=== PATIENT | female | born 1970 | race Caucasian/White ===

== ENCOUNTER 2018-02-13 13:44 | Inpatient (IN) | payer MEDICAID, OTHER ==
[~2018-02-13] VITALS: Ht 157.5 cm; Wt 76.7 kg
[2018-02-13 15:33] LABS: BASOPHILS % (AUTO) 0.6 % (0.0-2.0); EOSINOPHILS % (AUTO) 1.6 % (1.0-6.0); HEMATOCRIT 38.7 % (36-46); HEMOGLOBIN 13.1 g/dL (12.0-16.0); LYMPHOCYTES # (AUTO) 3.7 K/uL (1.0-4.8); LYMPHOCYTES % (AUTO) 34.5 % (22.0-44.0); MEAN CORPUSCULAR HEMOGLOBIN 29.6 pg (26.0-34.0); MEAN CORPUSCULAR HGB CONC 33.9 G/dL (31.0-37.0); MEAN CORPUSCULAR VOLUME 87 fL (80-100); MONOCYTES # (AUTO) 0.8 K/uL (0.1-1.0); MONOCYTES % (AUTO) 7.9 % (2.0-9.0); NEUTROPHILS # (AUTO) 5.9 K/uL (1.8-7.7); NEUTROPHILS % (AUTO) 55.4 % (40.0-70.0); PLATELET COUNT (AUTO) 394 K/uL (150-450); RED BLOOD CELL COUNT(AUTO) 4.45 MIL/uL (4.00-5.20); RED CELL DISTRIBUTION WIDTH 13.7 % (11.5-14.5)
[2018-02-13 15:48] LABS: ANION GAP 8 mmol/L (8-16); CALCIUM, TOTAL 8.9 mg/dL (8.8-10.5); CARBON DIOXIDE 28 mmol/L (22-29); CHLORIDE 106 mmol/L (98-107); CREATININE 0.61 mg/dL (0.60-1.30); GLOMERULAR FILTR. RATE CALC > 60 mL/min (>60); GLUCOSE,RANDOM 100 mg/dL (70-110); POTASSIUM 3.9 mmol/L (3.5-5.1); SODIUM SERUM 142 mmol/L (136-145); UREA NITROGEN, BLOOD 15 mg/dL (7-18)
[2018-02-13 15:53] LABS: ALANINE AMINOTRANSFERASE 25 U/L (12-78); ALBUMIN 3.2 g/dL (3.4-5.0); ALKALINE PHOSPHATASE 92 U/L (46-116); ASPARTATE AMINOTRANSFERASE 16 U/L (15-37); BILIRUBIN,TOTAL 0.2 mg/dL (0.1-1.0); TOTAL PROTEIN, SERUM 6.4 g/dL (6.4-8.2)
[2018-02-13 15:54] LABS: APPEARANCE,URINE CLOUDY (CLEAR); BILIRUBIN,URINE NEGATIVE (NEGATIVE); GLUCOSE, URINE (UA) NEGATIVE (NEGATIVE); KETONES,URINE NEGATIVE (NEGATIVE); LEUKOCYTE ESTERASE ,URINE MODERATE (NEGATIVE); NITRATE,URINE NEGATIVE (NEGATIVE); OCCULT BLOOD,URINE NEGATIVE (NEGATIVE); PH,URINE 6.5 (5.0-8.0); PROTEIN,URINE NEGATIVE (NEGATIVE); UROBILINOGEN,URINE 0.2 mg/dL (<=1.0)
[2018-02-13 16:26] LABS: AMPHET/METH SCREEN,URINE POSITIVE (NEGATIVE); BARBITURATE SCREEN, URINE NEGATIVE (NEGATIVE); BENZODIAZEPINES SCREEN,URINE NEGATIVE (NEGATIVE); CANNABINOID SCREEN,URINE NEGATIVE (NEGATIVE); COCAINE SCREEN,URINE NEGATIVE (NEGATIVE); METHADONE SCREEN, URINE NEGATIVE (NEGATIVE); OPIATE SCREEN,URINE NEGATIVE (NEGATIVE)
[2018-02-13 16:30] LABS: PHENCYCLIDINE SCREEN,URINE NEGATIVE (NEGATIVE)
[2018-02-13] MEDS ORDERED: CefTRIAXone SODIUM 1 GM/VIAL IM ONE (16:30)
[2018-02-13] MEDS ORDERED: MetroNIDAZOLE 500 MG TABLET PO ONE (16:45)
[2018-02-13] MEDS ORDERED: AZITHROMYCIN 250 MG TABLET PO ONE (16:45)
[2018-02-13 16:47] LABS: BACTERIA,URINE Few /HPF (None Seen); RBC,URINE None Seen /HPF (0-2); SQUAMOUS EPITHELIAL CELL,UR Few /LPF (None Seen); WBC,URINE 0-2 /HPF (0-5)
[2018-02-13] MEDS ORDERED: KETOROLAC TROMETHAMINE 30 MG/ML VIAL IM ONE (17:15)
[2018-02-13] MEDS ORDERED: ACETAMINOPHEN 325 MG TABLET PO ONE (21:45)
[2018-02-14] VITALS: BP 117/75
[2018-02-14] MEDS ORDERED: PNEUMOCOCCAL VACCINE POLYVALENT 0.5 ML VIAL [PPSV23] IM ONE (03:15)
[2018-02-14] MEDS ORDERED: MAGNESIUM HYDROXIDE SUSPENSION 30 ML UDCUP PO PRN (07:30)
[2018-02-14] MEDS ORDERED: LOPERAMIDE HCL 2 MG CAPSULE PO PRN (07:30)
[2018-02-14] MEDS ORDERED: ONDANSETRON HCL 4 MG TABLET PO PRN (07:30)
[2018-02-14] MEDS ORDERED: NICOTINE 14 MG/24 HOUR PATCH TD PRN (07:30)
[2018-02-14] MEDS ORDERED: GuaiFENesin/D-METHORPHAN [SUGAR-FREE] 200-20MG/10 ML SYRUP UDCUP PO PRN (07:30)
[2018-02-14] MEDS ORDERED: PETROLATUM,WHITE 71 GM JELLY TP PRN (07:30)
[2018-02-14] MEDS ORDERED: ALBUTEROL SULFATE HFA 90 MCG/PUFF 8 GM INHALER IH PRN (07:30)
[2018-02-14] MEDS ORDERED: CloNIDine HCL 0.1 MG TABLET PO PRN (07:30)
[2018-02-14] MEDS ORDERED: ACETAMINOPHEN 325 MG TABLET PO PRN (07:30)
[2018-02-14] MEDS ORDERED: DOCUSATE SODIUM 100 MG CAPSULE PO PRN (07:30)
[2018-02-14 08:29] VITALS: BP 150/83
[2018-02-14 09:57] VITALS: BP 132/67
[2018-02-14] MEDS: IBUPROFEN 400 MG TABLET PO PRN (09:57)
[2018-02-14] MEDS: VENLAFAXINE HCL 75 MG ER CAPSULE PO SCH (12:39)
[2018-02-14] MEDS: QUEtiapine FUMARATE 25 MG TABLET PO SCH (12:39)
[2018-02-14 16:11] VITALS: BP 123/69
[2018-02-14] MEDS: LORazepam 2 MG TABLET PO PRN (16:40)
[2018-02-14] MEDS: OLANZapine 5 MG RAPDIS TABLET PO PRN (16:40)
[2018-02-14] MEDS: ZOLPIDEM TARTRATE 10 MG TABLET PO PRN (20:30)
[2018-02-14] MEDS: QUEtiapine FUMARATE 100 MG TABLET PO SCH (20:30)
[2018-02-15 06:30] VITALS: BP 132/88
[2018-02-15] MEDS: VENLAFAXINE HCL 75 MG ER CAPSULE PO SCH (08:18)
[2018-02-15] MEDS: QUEtiapine FUMARATE 25 MG TABLET PO SCH (08:18)
[2018-02-15 08:30] VITALS: BP 142/81
[2018-02-15 16:05] VITALS: BP 130/69
[2018-02-15] MEDS: LORazepam 2 MG TABLET PO PRN (17:35)
[2018-02-15] MEDS: QUEtiapine FUMARATE 100 MG TABLET PO SCH (20:36)
[2018-02-15] MEDS: ZOLPIDEM TARTRATE 10 MG TABLET PO PRN (21:05)
[2018-02-16 06:09] VITALS: BP 141/90
[2018-02-16] MEDS: IBUPROFEN 400 MG TABLET PO PRN ×2 (06:17→16:10)
[2018-02-16] MEDS: LORazepam 2 MG TABLET PO PRN ×2 (06:17→16:37)
[2018-02-16] MEDS: QUEtiapine FUMARATE 25 MG TABLET PO SCH (08:05)
[2018-02-16] MEDS: VENLAFAXINE HCL 75 MG ER CAPSULE PO SCH (08:05)
[2018-02-16 08:24] VITALS: BP 116/61
[2018-02-16 16:09] VITALS: BP 141/96
[2018-02-16] MEDS: QUEtiapine FUMARATE 100 MG TABLET PO SCH (20:38)
[2018-02-17 05:44] VITALS: BP 127/75
[2018-02-17 08:21] VITALS: BP 102/60
[2018-02-17 08:23] LABS: BASOPHILS % (AUTO) 0.5 % (0.0-2.0); EOSINOPHILS % (AUTO) 2.5 % (1.0-6.0); HEMOGLOBIN 13.8 g/dL (12.0-16.0); LYMPHOCYTES # (AUTO) 2.4 K/uL (1.0-4.8); LYMPHOCYTES % (AUTO) 22.4 % (22.0-44.0); MEAN CORPUSCULAR HEMOGLOBIN 29.6 pg (26.0-34.0); MEAN CORPUSCULAR HGB CONC 34.5 G/dL (31.0-37.0); MEAN CORPUSCULAR VOLUME 86 fL (80-100); MONOCYTES # (AUTO) 0.6 K/uL (0.1-1.0); MONOCYTES % (AUTO) 5.9 % (2.0-9.0); NEUTROPHILS # (AUTO) 7.3 K/uL (1.8-7.7); NEUTROPHILS % (AUTO) 68.7 % (40.0-70.0); PLATELET COUNT (AUTO) 426 K/uL (150-450); RED BLOOD CELL COUNT(AUTO) 4.67 MIL/uL (4.00-5.20); RED CELL DISTRIBUTION WIDTH 13.5 % (11.5-14.5)
[2018-02-17] MEDS: VENLAFAXINE HCL 150 MG ER CAPSULE PO SCH (08:31)
[2018-02-17] MEDS: QUEtiapine FUMARATE 25 MG TABLET PO SCH (08:31)
[2018-02-17] MEDS: IBUPROFEN 400 MG TABLET PO PRN (08:49)
[2018-02-17 09:00] LABS: HEMOGLOBIN A1C 5.4 % (4.5-6.2)
[2018-02-17 09:01] LABS: ALANINE AMINOTRANSFERASE 26 U/L (12-78); ALBUMIN 3.7 g/dL (3.4-5.0); ALKALINE PHOSPHATASE 83 U/L (46-116); ANION GAP 8 mmol/L (8-16); ASPARTATE AMINOTRANSFERASE 25 U/L (15-37); BILIRUBIN,TOTAL 0.5 mg/dL (0.1-1.0); CALCIUM, TOTAL 8.6 mg/dL (8.8-10.5); CARBON DIOXIDE 26 mmol/L (22-29); CHLORIDE 102 mmol/L (98-107); CHOL/HDL RATIO 4.1 (3.9-5.7); CHOLESTEROL 159 mg/dL (131-200); CREATININE 0.57 mg/dL (0.60-1.30); GLOMERULAR FILTR. RATE CALC > 60 mL/min (>60); GLUCOSE,RANDOM 85 mg/dL (70-110); HCG,QUANTITATIVE 1 mIU/mL (0-6); HDL CHOLESTEROL 39 mg/dL (40-60); LDL CHOL (CALC.) 84 mg/dL (0-130); POTASSIUM 4.3 mmol/L (3.5-5.1); SODIUM SERUM 136 mmol/L (136-145); THYROID STIMULATING HORMONE 1.83 uIU/mL (0.36-3.74); TOTAL PROTEIN, SERUM 7.3 g/dL (6.4-8.2); TRIGLYCERIDES 180 mg/dL (15-150); UREA NITROGEN, BLOOD 13 mg/dL (7-18)
[2018-02-17] MEDS: LORazepam 2 MG TABLET PO PRN (12:34)
[2018-02-17 16:00] VITALS: BP 124/70
[2018-02-17] MEDS: MAG HYDROX/AL HYDROX/SIMETH ES 30 ML SUSPENSION UDCUP PO PRN (16:03)
[2018-02-17] MEDS: OLANZapine 5 MG RAPDIS TABLET PO PRN (17:08)
[2018-02-17] MEDS: QUEtiapine FUMARATE 100 MG TABLET PO SCH (20:10)
[2018-02-18 06:31] VITALS: BP 127/72
[2018-02-18] MEDS: LORazepam 2 MG TABLET PO PRN ×3 (06:41→12:11)
[2018-02-18] MEDS: QUEtiapine FUMARATE 25 MG TABLET PO SCH (08:25)
[2018-02-18] MEDS: VENLAFAXINE HCL 150 MG ER CAPSULE PO SCH (08:25)
[2018-02-18 08:33] VITALS: BP 145/91
[2018-02-18 12:30] VITALS: BP 131/77
[2018-02-18] MEDS: OLANZapine 5 MG RAPDIS TABLET PO PRN (12:35)
[2018-02-18] MEDS: IBUPROFEN 400 MG TABLET PO PRN (12:35)
[2018-02-18] MEDS ORDERED: BARIUM SULFATE 0.1% SUSPENSION 450 ML BOTTLE ONE (12:35)
[2018-02-18 16:30] VITALS: BP 128/89
[2018-02-18] MEDS: QUEtiapine FUMARATE 100 MG TABLET PO SCH (20:19)
[2018-02-19] MEDS: LORazepam 2 MG TABLET PO PRN ×2 (04:40→09:08)
[2018-02-19 07:56] LABS: INR 0.9 (0.9-1.1); PROTHROMBIN TIME 9.6 SEC (9.4-11.6)
[2018-02-19 08:08] VITALS: BP 139/83
[2018-02-19] MEDS: VENLAFAXINE HCL 150 MG ER CAPSULE PO SCH (08:11)
[2018-02-19] MEDS: IBUPROFEN 400 MG TABLET PO PRN (08:11)
[2018-02-19] MEDS: QUEtiapine FUMARATE 25 MG TABLET PO SCH (08:12)
[2018-02-19] MEDS: OLANZapine 5 MG RAPDIS TABLET PO PRN ×2 (09:08→13:12)
[2018-02-19] MEDS ORDERED: PEG 3350/NA SULF,BICARB,CL/KCL 4000 ML SOLUTION PO ONE ×2 (17:00)
[2018-02-19 18:25] VITALS: BP 131/84
[2018-02-19] MEDS: QUEtiapine FUMARATE 100 MG TABLET PO SCH (20:36)
[2018-02-19] MEDS: ZOLPIDEM TARTRATE 10 MG TABLET PO PRN (20:37)
[2018-02-20 04:25] VITALS: BP 134/98
[2018-02-20] MEDS: IBUPROFEN 400 MG TABLET PO PRN (04:28)
[2018-02-20] MEDS: LORazepam 2 MG TABLET PO PRN ×2 (04:28→08:41)
[2018-02-20] MEDS: QUEtiapine FUMARATE 25 MG TABLET PO SCH (07:37)
[2018-02-20] MEDS: VENLAFAXINE HCL 150 MG ER CAPSULE PO SCH (07:37)
[2018-02-20 08:11] VITALS: BP 137/85
[2018-02-20] MEDS: OLANZapine 5 MG RAPDIS TABLET PO PRN (08:41)
[2018-02-20] MEDS ORDERED: SODIUM CHLORIDE 0.9% 1,000 ML IV ONE ×2 (12:47→14:00)
[2018-02-20 16:25] VITALS: BP 106/78
[2018-02-20] MEDS: QUEtiapine FUMARATE 100 MG TABLET PO SCH (20:44)
[2018-02-21] MEDS: ZOLPIDEM TARTRATE 10 MG TABLET PO PRN (02:11)
[2018-02-21] MEDS: LORazepam 2 MG TABLET PO PRN ×3 (02:11→18:44)
[2018-02-21] MEDS ORDERED: LIDOCAINE/PF 2% 5 ML VIAL IM ONE (05:46)
[2018-02-21] MEDS ORDERED: PROPOFOL 1% 20 ML VIAL IVP ONE (05:46)
[2018-02-21 08:39] VITALS: BP 134/78
[2018-02-21] MEDS: IBUPROFEN 400 MG TABLET PO PRN ×2 (08:39→18:07)
[2018-02-21] MEDS: VENLAFAXINE HCL 150 MG ER CAPSULE PO SCH (08:39)
[2018-02-21] MEDS: QUEtiapine FUMARATE 25 MG TABLET PO SCH (08:39)
[2018-02-21] MEDS: OLANZapine 5 MG RAPDIS TABLET PO PRN (08:43)
[2018-02-21 18:07] VITALS: BP 141/105
[2018-02-21 19:07] VITALS: BP 153/91
[2018-02-21] MEDS: MAG HYDROX/AL HYDROX/SIMETH ES 30 ML SUSPENSION UDCUP PO PRN (20:08)
[2018-02-21] MEDS: QUEtiapine FUMARATE 100 MG TABLET PO SCH (20:08)
[2018-02-22] MEDS: LORazepam 2 MG TABLET PO PRN ×4 (03:13→17:06)
[2018-02-22 05:38] VITALS: BP 128/82
[2018-02-22] MEDS: IBUPROFEN 400 MG TABLET PO PRN ×2 (05:38→14:15)
[2018-02-22] MEDS: QUEtiapine FUMARATE 25 MG TABLET PO SCH (07:25)
[2018-02-22] MEDS: OLANZapine 5 MG RAPDIS TABLET PO PRN ×3 (07:25→17:06)
[2018-02-22] MEDS: VENLAFAXINE HCL 150 MG ER CAPSULE PO SCH (07:25)
[2018-02-22 08:00] VITALS: BP 148/96
[2018-02-22 16:00] VITALS: BP 151/86
[2018-02-22] MEDS: QUEtiapine FUMARATE 100 MG TABLET PO SCH (20:17)
[2018-02-23 05:51] VITALS: BP 142/81
[2018-02-23] MEDS: IBUPROFEN 400 MG TABLET PO PRN ×2 (05:51→14:02)
[2018-02-23] MEDS: VENLAFAXINE HCL 150 MG ER CAPSULE PO SCH (08:09)
[2018-02-23] MEDS: QUEtiapine FUMARATE 25 MG TABLET PO SCH (08:09)
[2018-02-23 08:32] VITALS: BP 126/68
[2018-02-23] MEDS: MAG HYDROX/AL HYDROX/SIMETH ES 30 ML SUSPENSION UDCUP PO PRN (09:34)
[2018-02-23] MEDS: LORazepam 2 MG TABLET PO PRN (12:51)
[2018-02-23 14:04] VITALS: BP 134/86
[2018-02-23 15:08] VITALS: BP 134/76
[2018-02-23 16:08] VITALS: BP 136/80
[2018-02-23] MEDS: QUEtiapine FUMARATE 100 MG TABLET PO SCH (20:05)
[2018-02-24] MEDS: MAG HYDROX/AL HYDROX/SIMETH ES 30 ML SUSPENSION UDCUP PO PRN ×2 (01:09→09:47)
[2018-02-24] MEDS: LORazepam 2 MG TABLET PO PRN ×2 (01:09→09:11)
[2018-02-24] MEDS: ZOLPIDEM TARTRATE 10 MG TABLET PO PRN (01:09)
[2018-02-24 08:00] VITALS: BP 131/90
[2018-02-24] MEDS: QUEtiapine FUMARATE 25 MG TABLET PO SCH (09:11)
[2018-02-24] MEDS: VENLAFAXINE HCL 150 MG ER CAPSULE PO SCH (09:11)
[2018-02-24] MEDS: OLANZapine 5 MG RAPDIS TABLET PO PRN (12:54)
[2018-02-24] MEDS ORDERED: VENL-68 PO (13:13)
[2018-02-24] MEDS ORDERED: QUET100T PO (13:14)
[2018-02-24] MEDS ORDERED: QUET25TA PO (13:14)
== END 2018-02-24 14:00 | disposition home or self-care (01) | DRG 751 ==
LOC: EMS 13:45 → B3A 21:30 → 3EC 02-18 11:40
PROVIDERS: ADMIT Psychiatry & Neurology Psychiatry; ATTEND Psychiatry & Neurology Psychiatry
PROC: 0DJD8ZZ Inspection of Lower Intestinal Tract, Via Natural or Artificial Opening Endoscopic (ICD-10-PCS; principal; 2018-02-20 15:30)
DX: F33.3 Major depressive disorder, recurrent, severe with psychotic symptoms (principal); R45.851 Suicidal ideations; T18.9XXA Foreign body of alimentary tract, part unspecified, initial encounter; F17.210 Nicotine dependence, cigarettes, uncomplicated; F41.9 Anxiety disorder, unspecified; I10 Essential (primary) hypertension; F60.3 Borderline personality disorder; G89.29 Other chronic pain; K64.8 Other hemorrhoids; G56.00 Carpal tunnel syndrome, unspecified upper limb; F15.10 Other stimulant abuse, uncomplicated; Z59.0 Homelessness; Z81.8 Family history of other mental and behavioral disorders; Z91.19 Patient's noncompliance with other medical treatment and regimen; Z91.5 Personal history of self-harm; Z28.21 Immunization not carried out because of patient refusal; Z71.6 Tobacco abuse counseling; Z71.51 Drug abuse counseling and surveillance of drug abuser
CPT/HCPCS: 74018; 74176; 83036; 84443; 87081; 87491; 87591; 96372; G0480; J0696; J1885; J2704; J3490; J7030; Q0162

== ENCOUNTER 2019-02-08 14:07 | Emergency (ER) | payer MEDICAID, OTHER ==
[~2019-02-08] VITALS: Ht 157.5 cm; Wt 72.7 kg
[~2019-02-08 14:07] MED LIST: QUET100T PO; QUET25TA PO; VENL-68 PO
[2019-02-08 15:49] LABS: BASOPHILS % (AUTO) 0.3 % (0.0-2.0); EOSINOPHILS % (AUTO) 6.4 % (1.0-6.0); HEMATOCRIT 42.4 % (36-46); HEMOGLOBIN 14.3 g/dL (12.0-16.0); LYMPHOCYTES # (AUTO) 2.1 K/uL (1.0-4.8); LYMPHOCYTES % (AUTO) 22.4 % (22.0-44.0); MEAN CORPUSCULAR HEMOGLOBIN 28.6 pg (26.0-34.0); MEAN CORPUSCULAR HGB CONC 33.7 G/dL (31.0-37.0); MEAN CORPUSCULAR VOLUME 85 fL (80-100); MONOCYTES # (AUTO) 0.5 K/uL (0.1-1.0); MONOCYTES % (AUTO) 5.4 % (2.0-9.0); NEUTROPHILS # (AUTO) 6.1 K/uL (1.8-7.7); NEUTROPHILS % (AUTO) 65.5 % (40.0-70.0); PLATELET COUNT (AUTO) 359 K/uL (150-450); RED BLOOD CELL COUNT(AUTO) 5.01 MIL/uL (4.00-5.20); RED CELL DISTRIBUTION WIDTH 15.4 % (11.5-14.5)
[2019-02-08 15:59] LABS: ANION GAP 11 mmol/L (8-16); CALCIUM, TOTAL 8.8 mg/dL (8.8-10.5); CARBON DIOXIDE 23 mmol/L (22-29); CHLORIDE 105 mmol/L (98-107); CREATININE 0.72 mg/dL (0.60-1.30); GLOMERULAR FILTR. RATE CALC > 60 mL/min (>60); GLUCOSE,RANDOM 92 mg/dL (70-110); POTASSIUM 3.6 mmol/L (3.5-5.1); SODIUM SERUM 139 mmol/L (136-145); UREA NITROGEN, BLOOD 9 mg/dL (7-18)
[2019-02-08 16:10] LABS: ALANINE AMINOTRANSFERASE 17 U/L (12-78); ALBUMIN 3.7 g/dL (3.4-5.0); ALKALINE PHOSPHATASE 126 U/L (46-116); ASPARTATE AMINOTRANSFERASE 14 U/L (15-37); BILIRUBIN,TOTAL 0.4 mg/dL (0.1-1.0); HCG,QUANTITATIVE < 1 mIU/mL (0-6); LIPASE 62 U/L (73-393); TOTAL PROTEIN, SERUM 7.7 g/dL (6.4-8.2)
[2019-02-08] MEDS ORDERED: ONDANSETRON HCL 4 MG/2 ML VIAL IVP ONE (16:30)
[2019-02-08] MEDS ORDERED: SODIUM CHLORIDE 0.9% 1,000 ML IV ONE (16:30)
[2019-02-08] MEDS ORDERED: KETOROLAC TROMETHAMINE 30 MG/ML VIAL IVP ONE (16:30)
[2019-02-08 17:20] LABS: APPEARANCE,URINE TURBID (CLEAR); GLUCOSE, URINE (UA) NEGATIVE (NEGATIVE); KETONES,URINE NEGATIVE (NEGATIVE); LEUKOCYTE ESTERASE ,URINE NEGATIVE (NEGATIVE); NITRATE,URINE NEGATIVE (NEGATIVE); OCCULT BLOOD,URINE NEGATIVE (NEGATIVE); PH,URINE 5.5 (5.0-8.0); PROTEIN,URINE NEGATIVE (NEGATIVE); UROBILINOGEN,URINE 0.2 mg/dL (<=1.0)
[2019-02-08 17:56] LABS: BILIRUBIN,URINE PRELIM. POSITIVE (NEGATIVE)
[2019-02-08] MEDS ORDERED: KETOROLAC TROMETHAMINE 30 MG/ML VIAL IM ONE (18:15)
[2019-02-08 18:16] LABS: AMORPHOUS SEDIMENT,UR Many /LPF (None Seen); RBC,URINE None Seen /HPF (0-2); SQUAMOUS EPITHELIAL CELL,UR Few /LPF (None Seen); WBC,URINE None Seen /HPF (0-5)
[2019-02-08 18:17] LABS: BACTERIA,URINE Rare /HPF (None Seen); CALCIUM OXALATE CRYSTALS,UR Moderate /LPF (None Seen)
[2019-02-08 18:45] VITALS: BP 117/80
== END 2019-02-08 19:00 | disposition home or self-care (01) ==
LOC: EMS 14:08
DX: R10.84 Generalized abdominal pain (principal); R11.2 Nausea with vomiting, unspecified; R19.7 Diarrhea, unspecified; I10 Essential (primary) hypertension; F41.9 Anxiety disorder, unspecified; F32.9 Major depressive disorder, single episode, unspecified; F17.210 Nicotine dependence, cigarettes, uncomplicated; Z79.899 Other long term (current) drug therapy
CPT/HCPCS: 36415; 76700; 80053; 81001; 83690; 84702; 85025; 96361; 96372; 96374; 96375; 99284; J1885; J2405; J7030

== ENCOUNTER 2020-05-28 21:50 | Emergency (ER) | payer OTHER ==
[~2020-05-28] VITALS: Ht 154.9 cm; Wt 90.9 kg
[~2020-05-28 21:50] MED LIST changes: -QUET25TA PO
[2020-05-29] MEDS ORDERED: BACLOFEN 10 MG TABLET PO ONE (01:00)
[2020-05-29] MEDS ORDERED: KETOROLAC TROMETHAMINE 60 MG/2 ML VIAL IM ONE (01:00)
[2020-05-29 02:23] VITALS: BP 132/88
== END 2020-05-29 02:37 | disposition home or self-care (01) ==
LOC: EMS 21:53
DX: S13.4XXA Sprain of ligaments of cervical spine, initial encounter (principal); F41.9 Anxiety disorder, unspecified; F32.9 Major depressive disorder, single episode, unspecified; I10 Essential (primary) hypertension; F17.210 Nicotine dependence, cigarettes, uncomplicated; V43.52XA Car driver injured in collision with other type car in traffic accident, initial encounter; Y93.89 Activity, other specified; Y92.89 Other specified places as the place of occurrence of the external cause; Y99.8 Other external cause status
CPT/HCPCS: 70450; 72125; 96372; 99285; J1885

== ENCOUNTER 2020-07-05 15:02 | Emergency (ER) | payer OTHER ==
[~2020-07-05] VITALS: Ht 154.9 cm; Wt 90.9 kg
[2020-07-05] MEDS ORDERED: CefTRIAXone SODIUM 1 GM/VIAL IM ONE (16:15)
[2020-07-05] MEDS ORDERED: MetroNIDAZOLE 500 MG TABLET PO ONE (16:15)
[2020-07-05] MEDS ORDERED: LIDOCAINE/PF 1% 2 ML VIAL IM ONE (16:15)
[2020-07-05] MEDS ORDERED: AZITHROMYCIN 500 MG TABLET PO ONE (16:15)
[2020-07-05 16:41] LABS: AMPHET/METH SCREEN,URINE NEGATIVE (NEGATIVE); BARBITURATE SCREEN, URINE NEGATIVE (NEGATIVE); BENZODIAZEPINES SCREEN,URINE NEGATIVE (NEGATIVE); CANNABINOID SCREEN,URINE NEGATIVE (NEGATIVE); COCAINE SCREEN,URINE NEGATIVE (NEGATIVE); METHADONE SCREEN, URINE NEGATIVE (NEGATIVE); OPIATE SCREEN,URINE NEGATIVE (NEGATIVE); PHENCYCLIDINE SCREEN,URINE NEGATIVE (NEGATIVE)
[2020-07-05 16:51] LABS: BASOPHILS % (AUTO) 0.6 % (0.0-2.0); EOSINOPHILS % (AUTO) 3.4 % (1.0-6.0); HEMATOCRIT 39.2 % (36-46); HEMOGLOBIN 13.1 g/dL (12.0-16.0); LYMPHOCYTES # (AUTO) 2.4 K/uL (1.0-4.8); LYMPHOCYTES % (AUTO) 12.5 % (22.0-44.0); MEAN CORPUSCULAR HEMOGLOBIN 29.4 pg (26.0-34.0); MEAN CORPUSCULAR HGB CONC 33.4 G/dL (31.0-37.0); MEAN CORPUSCULAR VOLUME 88 fL (80-100); MONOCYTES # (AUTO) 0.7 K/uL (0.1-1.0); MONOCYTES % (AUTO) 3.7 % (2.0-9.0); NEUTROPHILS # (AUTO) 15.4 K/uL (1.8-7.7); NEUTROPHILS % (AUTO) 79.8 % (40.0-70.0); RED BLOOD CELL COUNT(AUTO) 4.46 MIL/uL (4.00-5.20); RED CELL DISTRIBUTION WIDTH 14.1 % (11.5-14.5)
[2020-07-05 16:57] LABS: ANION GAP 9 mmol/L (8-16); CALCIUM, TOTAL 8.4 mg/dL (8.8-10.5); CARBON DIOXIDE 24 mmol/L (22-29); CHLORIDE 105 mmol/L (98-107); GLOMERULAR FILTR. RATE CALC > 60 mL/min (>60); GLUCOSE,RANDOM 136 mg/dL (70-110); POTASSIUM 3.5 mmol/L (3.5-5.1); SODIUM SERUM 138 mmol/L (136-145); UREA NITROGEN, BLOOD 8 mg/dL (7-18)
[2020-07-05 17:09] LABS: PLATELET COUNT (AUTO) 353 K/uL (150-450)
[2020-07-05 17:10] LABS: PLATELET MORPHOLOGY COMMENT GIANT PLTS PRESENT
[2020-07-05 17:11] LABS: ALANINE AMINOTRANSFERASE 40 U/L (12-78); ALBUMIN 3.2 g/dL (3.4-5.0); ALKALINE PHOSPHATASE 103 U/L (46-116); ASPARTATE AMINOTRANSFERASE 33 U/L (15-37); BILIRUBIN,TOTAL 0.3 mg/dL (0.1-1.0); HCG,QUANTITATIVE 1 mIU/mL (0-6); LIPASE 75 U/L (73-393); TOTAL PROTEIN, SERUM 6.6 g/dL (6.4-8.2)
[2020-07-05] MEDS ORDERED: KETOROLAC TROMETHAMINE 30 MG/ML VIAL IVP ONE (17:15)
[2020-07-05 19:07] LABS: COVID AG,FIA SOURCE NASAL SWAB
[2020-07-05] MEDS ORDERED: MORPHINE SULFATE 4 MG/ML SYRINGE IVP ONE (19:15)
[2020-07-05] MEDS ORDERED: SODIUM CHLORIDE 0.9% 1,000 ML IV ONE (21:45)
[2020-07-05] MEDS ORDERED: PIPERACILLIN/TAZO 3.375 GM/D5W 50 ML IV ONE (21:45)
[2020-07-05] MEDS: MORPHINE SULFATE 2 MG/ML SYRINGE IVP PRN (23:30)
[2020-07-06] MEDS: MORPHINE SULFATE 2 MG/ML SYRINGE IVP PRN ×2 (04:11→10:15)
[2020-07-06 12:49] VITALS: BP 138/78
== END 2020-07-06 13:54 | disposition short-term general hospital (02) ==
LOC: EMS 15:02
DX: T18.2XXA Foreign body in stomach, initial encounter (principal); K63.1 Perforation of intestine (nontraumatic); D72.829 Elevated white blood cell count, unspecified; F41.9 Anxiety disorder, unspecified; F32.9 Major depressive disorder, single episode, unspecified; I10 Essential (primary) hypertension; F17.210 Nicotine dependence, cigarettes, uncomplicated; Z20.822 Contact with and (suspected) exposure to COVID-19; W45.8XXA Other foreign body or object entering through skin, initial encounter; Y93.89 Activity, other specified; Y92.89 Other specified places as the place of occurrence of the external cause; Y99.8 Other external cause status
CPT/HCPCS: 36415; 74022; 74176; 80053; 80307; 83690; 84702; 85025; 87426; 96365; 96372; 96375; 96376; 99291; A9575; G0480; J0696; J1885; J2270 ×3; J2543; J3490; J7030

== ENCOUNTER 2020-10-03 21:16 | Emergency (ER) | payer OTHER | END 2020-10-03 23:00 | disposition left against medical advice (07) | LOC: EMS 21:20 | DX: R07.9 Chest pain, unspecified (principal); Z53.21 Procedure and treatment not carried out due to patient leaving prior to being seen by health care provider ==

== ENCOUNTER 2020-11-24 20:18 | Emergency (ER) | payer OTHER ==
[~2020-11-24] VITALS: Ht 157.5 cm; Wt 85.9 kg
[2020-11-24 20:21] VITALS: BP 138/82
[2020-11-24] MEDS ORDERED: ACETAMINOPHEN/CODEINE 300-30 MG TABLET PO ONE (21:00)
[2020-11-24] MEDS ORDERED: PENICILLIN V POTASSIUM 500 MG TABLET PO ONE (21:00)
[2020-11-24] MEDS ORDERED: IBUPROFEN 600 MG TABLET PO ONE (21:00)
== END 2020-11-24 21:10 | disposition home or self-care (01) ==
LOC: EMS 20:20
DX: K08.89 Other specified disorders of teeth and supporting structures (principal)
CPT/HCPCS: 99284; Z7502; Z7610

== ENCOUNTER 2020-12-18 08:51 | Emergency (ER) | payer OTHER ==
[~2020-12-18] VITALS: Ht 157.5 cm; Wt 85.9 kg
[2020-12-18] MEDS ORDERED: PredniSONE 20 MG TABLET PO ONE (09:15)
[2020-12-18] MEDS ORDERED: ALBUTEROL SULFATE 2.5 MG/0.5 ML NEB SOLUTION NEB ONE (09:15)
[2020-12-18] MEDS ORDERED: IPRATROPIUM BROMIDE 0.5 MG/2.5 ML NEB SOLUTION NEB ONE (09:15)
[2020-12-18 09:21] LABS: BASOPHILS % (AUTO) 0.8 % (0.0-2.0); HEMATOCRIT 43.3 % (36-46); HEMOGLOBIN 14.7 g/dL (12.0-16.0); LYMPHOCYTES # (AUTO) 1.8 K/uL (1.0-4.8); LYMPHOCYTES % (AUTO) 12.6 % (22.0-44.0); MEAN CORPUSCULAR HEMOGLOBIN 28.7 pg (26.0-34.0); MEAN CORPUSCULAR VOLUME 84 fL (80-100); MONOCYTES # (AUTO) 0.7 K/uL (0.1-1.0); MONOCYTES % (AUTO) 4.9 % (2.0-9.0); NEUTROPHILS # (AUTO) 11.1 K/uL (1.8-7.7); NEUTROPHILS % (AUTO) 77.7 % (40.0-70.0); PLATELET COUNT (AUTO) 405 K/uL (150-450); RED BLOOD CELL COUNT(AUTO) 5.14 MIL/uL (4.00-5.20); RED CELL DISTRIBUTION WIDTH 15.7 % (11.5-14.5)
[2020-12-18 09:33] LABS: COVID AG,FIA SOURCE NASAL SWAB
[2020-12-18 09:39] LABS: ANION GAP 11 mmol/L (8-16); CALCIUM, TOTAL 9.3 mg/dL (8.8-10.5); CARBON DIOXIDE 24 mmol/L (22-29); CHLORIDE 105 mmol/L (98-107); CREATININE 0.76 mg/dL (0.60-1.30); GLOMERULAR FILTR. RATE CALC > 60 mL/min (>60); GLUCOSE,RANDOM 122 mg/dL (70-110); POTASSIUM 4.3 mmol/L (3.5-5.1); SODIUM SERUM 140 mmol/L (136-145); UREA NITROGEN, BLOOD 9 mg/dL (7-18)
[2020-12-18 09:51] LABS: ALANINE AMINOTRANSFERASE 49 U/L (12-78); ALBUMIN 3.8 g/dL (3.4-5.0); ALKALINE PHOSPHATASE 144 U/L (46-116); ASPARTATE AMINOTRANSFERASE 31 U/L (15-37); BILIRUBIN,TOTAL 0.4 mg/dL (0.1-1.0); HCG,QUANTITATIVE 2 mIU/mL (0-6); TOTAL PROTEIN, SERUM 8.2 g/dL (6.4-8.2)
[2020-12-18 10:01] LABS: INFLUENZA TYPE A NEGATIVE FOR TYPE A (NEGATIVE); INFLUENZA TYPE B NEGATIVE FOR TYPE B (NEGATIVE)
[2020-12-18 12:09] VITALS: BP 158/103
== END 2020-12-18 12:36 | disposition home or self-care (01) ==
LOC: EMS 08:51
DX: J45.901 Unspecified asthma with (acute) exacerbation (principal); J18.9 Pneumonia, unspecified organism; F41.9 Anxiety disorder, unspecified; I10 Essential (primary) hypertension; Z20.822 Contact with and (suspected) exposure to COVID-19
CPT/HCPCS: 36415; 71045; 80053; 84484; 84702; 85025; 87426; 87804; 93005; 94640; 99285; J7512; J7613

== ENCOUNTER 2021-01-05 19:45 | Emergency (ER) | payer OTHER ==
[~2021-01-05] VITALS: Ht 157.5 cm; Wt 90.0 kg
[2021-01-05 20:15] VITALS: BP 127/76
== END 2021-01-05 21:00 | disposition left against medical advice (07) ==
LOC: EMS 19:46
DX: T81.49XA Infection following a procedure, other surgical site, initial encounter (principal); Z53.21 Procedure and treatment not carried out due to patient leaving prior to being seen by health care provider; X58.XXXA Exposure to other specified factors, initial encounter

== ENCOUNTER 2021-02-22 09:02 | Emergency (ER) | payer OTHER ==
[~2021-02-22] VITALS: Ht 157.5 cm; Wt 90.9 kg
[2021-02-22] MEDS ORDERED: ALBUTEROL SULFATE 2.5 MG/0.5 ML NEB SOLUTION NEB ONE (10:30)
[2021-02-22] MEDS ORDERED: IPRATROPIUM BROMIDE 0.5 MG/2.5 ML NEB SOLUTION NEB ONE (10:30)
[2021-02-22 10:44] LABS: BASOPHILS % (AUTO) 0.7 % (0.0-2.0); EOSINOPHILS % (AUTO) 3.4 % (1.0-6.0); HEMOGLOBIN 15.3 g/dL (12.0-16.0); LYMPHOCYTES # (AUTO) 2.8 K/uL (1.0-4.8); LYMPHOCYTES % (AUTO) 20.5 % (22.0-44.0); MEAN CORPUSCULAR HEMOGLOBIN 29.4 pg (26.0-34.0); MEAN CORPUSCULAR HGB CONC 34.8 G/dL (31.0-37.0); MEAN CORPUSCULAR VOLUME 84 fL (80-100); MONOCYTES # (AUTO) 0.7 K/uL (0.1-1.0); MONOCYTES % (AUTO) 5.2 % (2.0-9.0); NEUTROPHILS # (AUTO) 9.4 K/uL (1.8-7.7); NEUTROPHILS % (AUTO) 70.2 % (40.0-70.0); PLATELET COUNT (AUTO) 421 K/uL (150-450); RED BLOOD CELL COUNT(AUTO) 5.21 MIL/uL (4.00-5.20); RED CELL DISTRIBUTION WIDTH 14.9 % (11.5-14.5)
[2021-02-22 10:54] LABS: COVID AG,FIA SOURCE NASAL SWAB
[2021-02-22 10:55] LABS: PROTHROMBIN TIME 10.2 SEC (9.4-11.6)
[2021-02-22 11:07] LABS: ANION GAP 14 mmol/L (8-16); CARBON DIOXIDE 27 mmol/L (22-29); CHLORIDE 102 mmol/L (98-107); CREATININE 0.67 mg/dL (0.60-1.30); GLOMERULAR FILTR. RATE CALC > 60 mL/min (>60); GLUCOSE,RANDOM 109 mg/dL (70-110); POTASSIUM 3.9 mmol/L (3.5-5.1); SODIUM SERUM 143 mmol/L (136-145); UREA NITROGEN, BLOOD 10 mg/dL (7-18)
[2021-02-22 11:18] LABS: B-TYPE NATRIURETIC PEPTIDE < 5 pg/mL (0-100)
[2021-02-22 11:22] LABS: ALANINE AMINOTRANSFERASE 47 U/L (12-78); ALBUMIN 3.6 g/dL (3.4-5.0); ALKALINE PHOSPHATASE 126 U/L (46-116); ASPARTATE AMINOTRANSFERASE 34 U/L (15-37); BILIRUBIN,TOTAL 0.5 mg/dL (0.1-1.0); TOTAL PROTEIN, SERUM 7.7 g/dL (6.4-8.2)
[2021-02-22 11:45] LABS: APPEARANCE,URINE HAZY (CLEAR); BILIRUBIN,URINE NEGATIVE (NEGATIVE); GLUCOSE, URINE (UA) NEGATIVE (NEGATIVE); OCCULT BLOOD,URINE NEGATIVE (NEGATIVE); PROTEIN,URINE NEGATIVE (NEGATIVE)
[2021-02-22 11:46] LABS: KETONES,URINE TRACE mg/dL (NEGATIVE); LEUKOCYTE ESTERASE ,URINE NEGATIVE (NEGATIVE); NITRATE,URINE NEGATIVE (NEGATIVE); UROBILINOGEN,URINE 0.2 mg/dL (<=1.0)
[2021-02-22 13:47] VITALS: BP 140/98
== END 2021-02-22 13:49 | disposition home or self-care (01) ==
LOC: EMS 09:02
DX: R07.9 Chest pain, unspecified (principal); J40 Bronchitis, not specified as acute or chronic; I10 Essential (primary) hypertension; F41.9 Anxiety disorder, unspecified; F17.210 Nicotine dependence, cigarettes, uncomplicated; Z20.822 Contact with and (suspected) exposure to COVID-19
CPT/HCPCS: 71045; 80053; 81003; 83880; 84484; 85025; 85610; 93005; 94640; 99285; 36415-L1; 36415-TC; J7613

== ENCOUNTER 2021-03-11 18:02 | Emergency (ER) | payer OTHER ==
[~2021-03-11] VITALS: Ht 157.5 cm; Wt 90.9 kg
[2021-03-11 18:21] VITALS: BP 141/102
[2021-03-11] MEDS ORDERED: LORazepam 2 MG/ML VIAL IM ONE (19:00)
[2021-03-11 19:19] LABS: BASOPHILS % (AUTO) 0.8 % (0.0-2.0); EOSINOPHILS % (AUTO) 0.1 % (1.0-6.0); HEMATOCRIT 43.9 % (36-46); HEMOGLOBIN 15.1 g/dL (12.0-16.0); LYMPHOCYTES # (AUTO) 1.4 K/uL (1.0-4.8); LYMPHOCYTES % (AUTO) 10.1 % (22.0-44.0); MEAN CORPUSCULAR HGB CONC 34.4 G/dL (31.0-37.0); MEAN CORPUSCULAR VOLUME 84 fL (80-100); MONOCYTES # (AUTO) 0.3 K/uL (0.1-1.0); NEUTROPHILS # (AUTO) 12.4 K/uL (1.8-7.7); PLATELET COUNT (AUTO) 498 K/uL (150-450); RED CELL DISTRIBUTION WIDTH 14.8 % (11.5-14.5)
[2021-03-11 19:27] LABS: ANION GAP 10 mmol/L (8-16); CARBON DIOXIDE 25 mmol/L (22-29); CHLORIDE 102 mmol/L (98-107); GLOMERULAR FILTR. RATE CALC > 60 mL/min (>60); GLUCOSE,RANDOM 150 mg/dL (70-110); POTASSIUM 4.3 mmol/L (3.5-5.1); SODIUM SERUM 137 mmol/L (136-145); UREA NITROGEN, BLOOD 13 mg/dL (7-18)
[2021-03-11 19:34] LABS: ALANINE AMINOTRANSFERASE 50 U/L (12-78); ALBUMIN 3.6 g/dL (3.4-5.0); ALKALINE PHOSPHATASE 138 U/L (46-116); ASPARTATE AMINOTRANSFERASE 37 U/L (15-37); BILIRUBIN,TOTAL 0.5 mg/dL (0.1-1.0); TOTAL PROTEIN, SERUM 8.3 g/dL (6.4-8.2)
[2021-03-11 19:41] LABS: PLATELET MORPHOLOGY COMMENT LARGE PLTS PRESENT
== END 2021-03-11 20:46 | disposition home or self-care (01) ==
LOC: EMS 18:02
DX: F41.9 Anxiety disorder, unspecified (principal); R07.89 Other chest pain; I10 Essential (primary) hypertension; F17.210 Nicotine dependence, cigarettes, uncomplicated; Z79.899 Other long term (current) drug therapy
CPT/HCPCS: 36415; 80053; 84484; 84703; 85025; 93005; 96372; 99284; J2060

== ENCOUNTER 2021-05-26 09:20 | Emergency (ER) | payer OTHER ==
[~2021-05-26] VITALS: Ht 157.5 cm; Wt 90.0 kg
[2021-05-26] MEDS ORDERED: ACETAMINOPHEN 500 MG TABLET PO ONE (10:30)
[2021-05-26] MEDS ORDERED: GuaiFENesin/D-METHORPHAN [SUGAR-FREE] 200-20MG/10 ML SYRUP UDCUP PO ONE (10:30)
[2021-05-26] MEDS ORDERED: IBUPROFEN 400 MG TABLET PO ONE (10:30)
[2021-05-26 10:46] LABS: COVID AG,FIA SOURCE NASOPHARYNGEAL
[2021-05-26 11:05] LABS: INFLUENZA TYPE A NEGATIVE FOR TYPE A (NEGATIVE); INFLUENZA TYPE B NEGATIVE FOR TYPE B (NEGATIVE)
[2021-05-26 11:13] VITALS: BP 155/91
[2021-05-26] MEDS ORDERED: GUAIFDM PO (11:43)
[2021-05-26] MEDS ORDERED: ACET-66 PO (11:43)
== END 2021-05-26 11:50 | disposition home or self-care (01) ==
LOC: EMS 09:26
DX: J06.9 Acute upper respiratory infection, unspecified (principal); F20.9 Schizophrenia, unspecified; F41.9 Anxiety disorder, unspecified; K21.9 Gastro-esophageal reflux disease without esophagitis; I10 Essential (primary) hypertension; Z20.822 Contact with and (suspected) exposure to COVID-19
CPT/HCPCS: 87804; 99284; Z7502; Z7610

== ENCOUNTER 2021-12-31 11:37 | Emergency (ER) | payer OTHER ==
[~2021-12-31] VITALS: Ht 157.5 cm; Wt 90.9 kg
[~2021-12-31 11:37] MED LIST changes: +ACET-66 PO; +GUAIFDM PO
[2021-12-31 11:50] VITALS: BP 140/89
[2021-12-31] MEDS ORDERED: IBUP-2071 PO (13:41)
[2021-12-31] MEDS ORDERED: PENI500T2 PO (13:41)
== END 2021-12-31 14:19 | disposition home or self-care (01) ==
LOC: EMS 11:37
DX: K02.9 Dental caries, unspecified (principal); E78.00 Pure hypercholesterolemia, unspecified; I10 Essential (primary) hypertension; F17.210 Nicotine dependence, cigarettes, uncomplicated; Z98.890 Other specified postprocedural states
CPT/HCPCS: 99283